=== PATIENT | female | born 1975 | race Caucasian/White ===

== ENCOUNTER 2021-01-10 20:52 | Emergency (ER) | payer BC ==
[2021-01-10 21:00] VITALS: BMI 20.1
[2021-01-10] MEDS ORDERED: SODIUM CHLORIDE 0.9% 500 ML INFUS.BAG IV ONE (22:55)
[2021-01-10] MEDS ORDERED: KETOROLAC TROMETHAMINE 30 MG/1 ML VIAL IVPUSH ONE (22:55)
[2021-01-10] MEDS ORDERED: METOCLOPRAMIDE HCL INJECTION 10 MG/2 ML VIAL IVPB ONE (22:55)
[2021-01-10] MEDS ORDERED: METOCLOPRAMIDE HCL INJECTION 10 MG/2 ML VIAL ONE (23:07)
[2021-01-10] MEDS ORDERED: KETOROLAC TROMETHAMINE 30 MG/1 ML VIAL ONE (23:07)
[2021-01-11 00:25] LABS: BASO % 0.3 % (0-2.0); HEMOGLOBIN 12.3 GM/dL (10.7-15.3); MCHC 33.3 g/dl (32.0-36.0); MEAN CELL VOLUME 93.3 fl (80-96); MEAN PLT VOLUME 9.5 fl (7.5-11.1); MONO % 12.3 % (3.8-10.2); NEUT % 45.4 % (42.8-82.8); PLATELET COUNT 261 K/MM3 (134-434); RBC 3.97 M/mm3 (3.60-5.2); RDW 13.2 % (11.6-15.6); WHITE BLOOD COUNT 4.9 K/mm3 (4.0-10.0)
[2021-01-11 00:58] LABS: CHLORIDE 105 mmol/L (98-107); POTASSIUM 4.1 mmol/L (3.5-5.1); SODIUM 136 mmol/L (136-145)
[2021-01-11 01:01] LABS: CALCIUM 9.3 mg/dL (8.5-10.1)
[2021-01-11 01:02] LABS: ALBUMIN 3.9 g/dl (3.4-5.0); ANION GAP 4 MMOL/L (8-16); CO2 27 mmol/L (21-32); GLUCOSE,RANDOM 89 mg/dL (74-106)
[2021-01-11 01:05] VITALS: TEMP 98
[2021-01-11 01:05] LABS: CREATININE 0.8 mg/dL (0.55-1.3); SGOT/AST 18 U/L (15-37); SGPT/ALT 17 U/L (13-61)
[2021-01-11 01:07] LABS: ALK PHOS 60 U/L (45-117); BILIRUBIN,TOTAL 0.2 mg/dL (0.2-1); TOT PROT 8.2 g/dl (6.4-8.2)
[2021-01-11 04:05] VITALS: BP 118/76; PULSE 78
[2021-01-11] MEDS ORDERED: ACETAMINOPHEN 325 MG TABLET (FP) PO ONE (04:09)
[2021-01-11] MEDS ORDERED: ACETAMINOPHEN 325 MG TABLET (FP) ONE (04:10)
== END 2021-01-11 04:15 | disposition home or self-care (01) ==
LOC: JER 20:52
PROC: 3E0333Z Introduction of Anti-inflammatory into Peripheral Vein, Percutaneous Approach (ICD-10-PCS; principal; 2021-01-10)
PROC: 3E033GC Introduction of Other Therapeutic Substance into Peripheral Vein, Percutaneous Approach (ICD-10-PCS; 2021-01-10)
DX: R10.13 Epigastric pain (principal); R07.9 Chest pain, unspecified; R51.9 Headache, unspecified
CPT/HCPCS: 36415; 71046-TC-FY; 80053; 82550; 84443; 84484; 84703; 85025; 93005; 93010; 99285-25